=== PATIENT | male | born 1965 | race Caucasian/White ===

== ENCOUNTER 2023-06-01 10:46 | Emergency (ER) | payer OTHER, SELFPAY ==
[2023-06-01 11:01] VITALS: BP 146/94; PULSE 74; RESP 16; TEMP 36.6; O2SAT 99
--- NOTE | 2023-06-01 11:51 | ED.URI ---
HPI - URI/Sore Throat General Chief Complaint: Upper Respiratory Infection Stated Complaint: Sore Throat Time Seen by Provider: 06/01/23 11:48 Source: patient, RN notes reviewed and old records reviewed Mode of arrival: ambulatory Limitations: no limitations History of Present Illness HPI Narrative: 58 year old male who presents to [facility] care with complaints of sore throat and sinus drainage since .Patient reports that he did a home COVID which was negative.Patient reports that he has been taking Advil and cough drops. Patient reports fevers up to 100.8F and states painful swallowing. Patient states no known ill contacts. MD elicited complaint: cough and sore throat Pertinent past history: sinusitis and other (previous sinus surgery) Onset (ago): day(s) (3 days) Pain scale (0-10): 6 Able to tolerate fluids by mouth: Yes Treatments prior to arrival: ibuprofen and other (cough drops) Related Data Home Medications Medication Instructions Recorded Confirmed aspirin 81 mg tablet,delayed 81 mg PO DAILY 06/09/20 06/01/23 release (Adult Aspirin Regimen) cholecalciferol (vitamin D3) 10 10 mcg PO DAILY 06/09/20 06/01/23 mcg (400 unit) capsule multivitamin (Daily Multi-Vitamin 1 tablet PO DAILY 06/09/20 06/01/23 tablet) Allergies Allergy/AdvReac Type Severity Reaction Status Date / Time No Known Allergies Allergy Verified 06/01/23 11:00 Review of Systems Review of Systems: CONSTITUTIONAL: Denies malaise, chills, sweats, or fever. EYES: Denies visual changes, redness, or discharge. ENT: Reports rhinorrhea, congestion, sinus pain, no otalgia positive for sore throat. CARDIOVASCULAR: Denies chest pain, palpitations, or edema. RESPIRATORY: Reports cough.? Denies dyspnea. GASTROINTESTINAL: Denies abdominal pain, nausea, vomiting, diarrhea SKIN: Denies rash or itching. MUSCULOSKELETAL: Denies myalgia. NEUROLOGIC: Denies headache. All systems reviewed & are unremarkable except as noted in HPI and below PMFSH Past Medical History Medical History Madrigal's palsy History of malignant melanoma of skin KENDELL (obstructive sleep apnea) Overweight (BMI 25.0-29.9) Surgical History Surgical History H/O endoscopic sinus surgery History of Achilles tendon repair Social History Social History Smoking status: Never smoker Alcohol intake: current Comments At time of signature, agree with nursing past medical, surgical, social and family history. There is no relevant family history pertinent to the presenting complaint Exam Narrative: GENERAL: Well-appearing, well-nourished, and in no acute distress. HEAD: Normocephalic EYES: PERRLA, conjunctivae clear ENT: Nares clear, turbinates edematous and erythematous, clear discharge. Mucous membranes moist. TM pearly gordillo with dull light reflex bilaterally; no tragal tenderness. Oropharynx erythematous without lesions. Tonsils not enlarged and without exudate, no drooling, no hoarseness, no trismus, uvula midline.post nasal drainage. SAO2 99% on room air NECK: Supple. No lymphadenopathy CHEST: Clear to auscultation, breath sounds equal. No wheezing, rhonchi, rales, or stridor. No respiratory distress, speaks in full sentences. HEART: Regular rate and rhythm. No murmur heard. SKIN: Warm, dry, no rash. NEURO: Alert and oriented x3. PSYCH: Normal mood and affect Course Course Emergency Course: Patient is aware of diagnosis, understands and agrees to treatment plan.? Anticipatory guidance given.? Patient agrees to follow-up as directed and is aware of reasons to seek care at the emergency department. Portions of this record may have been created with voice recognition software Level of Care: Express Care Visit Vital Signs Vital signs: Vital Signs Temperature 36.6
== END 2023-06-01 12:08 | disposition home or self-care (01) ==
PROVIDERS: Emergency Provider Registered Nurse; PCP Family Medicine
DX: J32.9 Chronic sinusitis, unspecified (principal); J02.9 Acute pharyngitis, unspecified; Z85.820 Personal history of malignant melanoma of skin
CPT/HCPCS: 87081; 87880; 99213; G0463

== ENCOUNTER 2023-06-22 08:10 | Emergency (ER) | payer OTHER, SELFPAY ==
--- NOTE | 2023-06-22 08:16 | ED.FEMALEGU ---
HPI - Female Genitourinary General Chief complaint: Urogenital-Male Stated complaint: UTI Problems Time Seen by Provider: 06/22/23 08:35 Source: patient and RN notes reviewed Mode of arrival: ambulatory Limitations: no limitations History of Present Illness HPI Narrative: 58-year-old male presents with concern for difficulty urinating. He reports his last normal urination was likely yesterday morning. Reports since then he has been able to only dribble . He denies any pain. He reports he feels an uncomfortable pressure. He denies fever, aches, chills, sweats, abdominal pain, nausea, vomiting, back pain. He denies hematuria. He reports he has been having urine frequency the last several weeks that he has orders to get blood work from his primary doctor but he has not done that yet. MD elicited complaint: UTI Related Data Home Medications Medication Instructions Recorded Confirmed aspirin 81 mg tablet,delayed 81 mg PO DAILY 06/09/20 06/22/23 release (Adult Aspirin Regimen) cholecalciferol (vitamin D3) 10 10 mcg PO DAILY 06/09/20 06/22/23 mcg (400 unit) capsule multivitamin (Daily Multi-Vitamin 1 tablet PO DAILY 06/09/20 06/22/23 tablet) Allergies Allergy/AdvReac Type Severity Reaction Status Date / Time No Known Allergies Allergy Verified 06/22/23 08:25 Review of Systems Review of Systems: CONSTITUTIONAL: Denies malaise, chills, sweats, or fever. CARDIOVASCULAR: Denies chest pain, palpitations, or edema. RESPIRATORY: Denies cough or dyspnea. GASTROINTESTINAL: Denies abdominal pain, nausea, vomiting, diarrhea GENITOURINARY: denies dysuria, frequency, urgency, suprapubic pressure. Denies flank pain or hematuria. reports difficulty urinating SKIN: Denies rash or itching. MUSCULOSKELETAL: Denies back pain or myalgia. All systems reviewed & are unremarkable except as noted in HPI and below PMFSH Past Medical History Medical History Madrigal's palsy History of malignant melanoma of skin KENDELL (obstructive sleep apnea) Overweight (BMI 25.0-29.9) Surgical History Surgical History H/O endoscopic sinus surgery History of Achilles tendon repair Social History Social History Smoking status: Never smoker Alcohol intake: current Comments At time of signature, agree with nursing past medical, surgical, social and family history. There is no relevant family history pertinent to the presenting complaint Exam Narrative: GENERAL: Well-appearing, well-nourished, and in no acute distress. HEAD: Normocephalic. EYES: PERRLA, conjunctivae clear. NECK: Supple. No lymphadenopathy CHEST: Clear to auscultation. No respiratory distress. HEART: Regular rate and rhythm. ABDOMEN: Soft, nontender upon palpation, nondistended, normal active bowel sounds, no palpable or pulsatile masses, no guarding. No CVA tenderness SKIN: Warm, dry, no rash. NEURO: Alert and oriented x3. PSYCH: Normal mood and affect Course Course Emergency Course: I advised patient that I am unable to catheterize him here in this clinic, offered transfer to the emergency department, patient would rather not go to the emergency department. I advised him I can treat for presumptive prostate itis with Flomax antibiotic and if he has not urinated by this evening he go to the emergency room. He prefers that plan of care. Patient is aware of, understands and agrees to treatment plan. Anticipatory guidance given. Patient agrees to follow-up as directed and is aware of reasons to seek care at the emergency department. Portions of this record may have been created with voice recognition software Level of Care: Express Care Visit Vital Signs Vital signs: Reviewed. MDM - Female Genitourinary MDM Narrative Medical decision making narrative: Exam findings and UA sh
[2023-06-22 08:19] VITALS: BP 176/115; PULSE 84; RESP 16; TEMP 36.8; O2SAT 99
== END 2023-06-22 08:49 | disposition home or self-care (01) ==
PROVIDERS: Emergency Provider Nurse Practitioner; PCP Family Medicine
DX: R39.11 Hesitancy of micturition (principal); Z79.82 Long term (current) use of aspirin
CPT/HCPCS: 81003; 99213; G0463

== ENCOUNTER 2023-08-22 02:00 | Day surgery (SDC) | payer OTHER, SELFPAY ==
[2023-08-07 10:03] VITALS: BMI 29.3
--- NOTE | 2023-08-20 08:56 | SUR.PREOP ---
Patient called regarding upcoming procedure. Reviewed preop instructions, appointment times, and procedure prep.
--- NOTE | 2023-08-21 09:46 | P.PNAN_ITS ---
Anes - Initial Pre Proc Eval Procedure: Operation Date: 08/22/23 07:30 Proposed Procedures p Screening Colonoscopy - Alonzo Scott MD Date/Time: 08/21/23 09:46 Surgeon: Alonzo Scott MD Pre Op Diagnosis: neoplasm screening Patient Data Age: 58 Gender: M Height: 1.78 m Weight: 92.7 kg Allergies Allergy/AdvReac Type Severity Reaction Status Date / Time No Known Allergies Allergy Verified 08/22/23 06:19 Home Medications Medication Instructions Recorded Confirmed Type aspirin 81 mg tablet,delayed 81 mg PO DAILY 06/09/20 08/22/23 History release (Adult Aspirin Regimen) cholecalciferol (vitamin D3) 10 10 mcg PO DAILY 06/09/20 08/22/23 History mcg (400 unit) capsule multivitamin (Daily Multi-Vitamin 1 tablet PO DAILY 06/09/20 08/22/23 History tablet) tamsulosin 0.4 mg capsule (Flomax) 0.4 mg PO DAILY #5 caps 06/22/23 08/22/23 Rx finasteride 5 mg tablet 5 mg PO DAILY #90 tabs 06/26/23 08/22/23 Rx tamsulosin 0.4 mg capsule (Flomax) 0.4 mg PO DAILY #90 caps 06/26/23 08/22/23 Rx fluticasone furoate 100 1 inh inhalation DAILY #60 ea 07/10/23 08/22/23 Rx mcg-vilanterol 25 mcg/dose inhalation powder (Breo Ellipta) bisoprolol fumarate 5 mg tablet See Rx Instructions .Route 08/05/23 08/22/23 Rx .COMPLEX #90 tabs Patient hx anesthesia problems: none Family hx anesthesia problems: none Results Review: All pre-operative results and documents have been reviewed as part of the pre- operative evaluation. [facility] Past Medical History Medical History (Updated 08/21/23 @ 09:46 by Carlos Benavidez DO) Madrigal's palsy Essential (primary) hypertension History of malignant melanoma of skin Mixed hyperlipidemia KENDELL (obstructive sleep apnea) Overweight (BMI 25.0-29.9) Surgical History Surgical History H/O endoscopic sinus surgery History of Achilles tendon repair Social History Social History (Updated 06/26/23 @ 15:08 by Shannan Laboy MA) Smoking status: Never smoker Alcohol intake: current Drinks per week: 2 Substance use type: does not use Lack of Transportation: No Lack of Food: Never True Current Housing: I Have Housing Concerned About Future Housing: No Difficulty Paying Gas/Electric Bills: No Difficulty Paying for Meds: No Currently Unemployed: No Education: Associate Degree Difficulty w/ Childcare or Family Care: No Living arrangements: with family Spiritual care concerns: No Anes - Eval Final PreProcedure Day of Procedure 08/21/23 09:46 Patient weight: overweight Heart: regular rate and rhythm Lungs: clear to auscultation Airway: Mallampati scale class II Neurological: alert and oriented Last oral intake: >/= 8 hours ASA classification: III Emergent: no Anesthetic plan: proceed Anesthesia type and monitoring: general GIVS and standard monitoring Results Review: All pre-operative results and documents have been reviewed as part of the pre- operative evaluation. Informed Consent: The patient's anesthetic plan and its attendant risks and benefits were discussed with the patient/family/POA. Questions were solicited and answers provided to the satisfaction of the patient/family/POA.
[2023-08-22 06:23] VITALS: BP 137/105; PULSE 68; RESP 18; TEMP 36.2; O2SAT 100; BMI 29.0
[2023-08-22] MEDS: LACTATED RINGERS 1,000 ML 150 ML IV CONT (06:25)
--- NOTE | 2023-08-22 07:18 | PM.HPGS ---
History of Present Illness History of Present Illness Consent: Risks, benefits, and alternatives have been discussed and questions answered. Patient agrees to proceed with procedure. Chief complaint: neoplasm screening Narrative: Compa Lester is a 58 year old male here for screening colonoscopy, last one 10 years ago Review of Systems Constitutional: Constitutional: Denies headache(s) and Denies weakness Eyes: Eyes: Denies blurry vision ENT: Reports Normal hearing present, Denies headache(s) and Denies neck pain Cardiovascular: Cardiovascular: Denies chest pain and Denies dyspnea Respiratory: Respiratory: Denies dyspnea Gastrointestinal: Gastrointestinal: Reports no additional gastrointestinal complaints Genitourinary: Genitourinary: Denies dysuria Musculoskeletal: Musculoskeletal: Denies neck pain Integumentary/Breasts: Skin/Breast: Denies dry skin Neurologic: Reports Normal hearing present, Denies headache(s) and Denies weakness Psychiatric: Psychiatric: Denies anxiety Endocrine: Endocrine: Denies change in body appearance Hematologic/Lymphatic: Hematologic/Lymphatic: Denies easy bleeding Allergic/Immunologic: Allergic/Immunologic: Denies urticaria PMFSH Past Medical History Medical History (Updated 08/21/23 @ 09:46 by Carlos Benavidez DO) Madrigal's palsy Essential (primary) hypertension History of malignant melanoma of skin Mixed hyperlipidemia KENDELL (obstructive sleep apnea) Overweight (BMI 25.0-29.9) Surgical History Surgical History H/O endoscopic sinus surgery History of Achilles tendon repair Social History Social History (Updated 06/26/23 @ 15:08 by Shannan Laboy MA) Smoking status: Never smoker Alcohol intake: current Drinks per week: 2 Substance use type: does not use Lack of Transportation: No Lack of Food: Never True Current Housing: I Have Housing Concerned About Future Housing: No Difficulty Paying Gas/Electric Bills: No Difficulty Paying for Meds: No Currently Unemployed: No Education: Associate Degree Difficulty w/ Childcare or Family Care: No Living arrangements: with family Spiritual care concerns: No Meds Home Medications and Allergies Home Medications Medication Instructions Recorded Confirmed Type aspirin 81 mg tablet,delayed 81 mg PO DAILY 06/09/20 08/22/23 History release (Adult Aspirin Regimen) cholecalciferol (vitamin D3) 10 10 mcg PO DAILY 06/09/20 08/22/23 History mcg (400 unit) capsule multivitamin (Daily Multi-Vitamin 1 tablet PO DAILY 06/09/20 08/22/23 History tablet) tamsulosin 0.4 mg capsule (Flomax) 0.4 mg PO DAILY #5 caps 06/22/23 08/22/23 Rx finasteride 5 mg tablet 5 mg PO DAILY #90 tabs 06/26/23 08/22/23 Rx tamsulosin 0.4 mg capsule (Flomax) 0.4 mg PO DAILY #90 caps 06/26/23 08/22/23 Rx fluticasone furoate 100 1 inh inhalation DAILY #60 ea 07/10/23 08/22/23 Rx mcg-vilanterol 25 mcg/dose inhalation powder (Breo Ellipta) bisoprolol fumarate 5 mg tablet See Rx Instructions .Route 08/05/23 08/22/23 Rx .COMPLEX #90 tabs Allergies Allergy/AdvReac Type Severity Reaction Status Date / Time No Known Allergies Allergy Verified 08/22/23 06:19 Vital Signs Vital Signs - 24 hr 08/22/23 06:23 Temperature 97.2 F L Pulse Rate 68 Respiratory Rate 18 Blood Pressure 137/105 H Pulse Oximetry 100 Oxygen Delivery Room Air Exam Const: General: comfortable and no acute distress HENMT: Face/Nose/Sinus: Normal nares present Eyes: General: appearance normal, both eyes and all related structures Neck: Neck: no JVD Resp: Auscultation: clear to auscultation bilaterally Cardio: Rate: regular rate Rhythm: regular rhythm GI: Inspection: non-distended GI Palp: Yes Soft to palpation Skin: General skin exam: normal color Neuro: General: gait normal Speech: normal speech Extrem: General: normal to inspection Psych:
[2023-08-22 07:32] VITALS: BP 116/69; PULSE 72; RESP 14; O2SAT 97
[2023-08-22 07:42] VITALS: BP 101/62; PULSE 62; RESP 14; O2SAT 98
[2023-08-22 07:52] VITALS: BP 110/66; PULSE 60; RESP 18; O2SAT 98
== END 2023-08-22 08:00 | disposition home or self-care (01) ==
PROVIDERS: PCP Family Medicine; Visit Provider Internal Medicine Gastroenterology
PROC: 0DJD8ZZ Inspection of Lower Intestinal Tract, Via Natural or Artificial Opening Endoscopic (ICD-10-PCS; CPT 45378; principal; 2023-08-22 07:30)
DX: Z12.11 Encounter for screening for malignant neoplasm of colon (principal); K57.30 Diverticulosis of large intestine without perforation or abscess without bleeding; K64.8 Other hemorrhoids; I10 Essential (primary) hypertension; E78.2 Mixed hyperlipidemia; G47.33 Obstructive sleep apnea (adult) (pediatric); Z79.82 Long term (current) use of aspirin; Z79.51 Long term (current) use of inhaled steroids
CPT/HCPCS: 45378; J2704; J7120

== ENCOUNTER 2025-05-28 17:00 | Emergency (ER) | payer OTHER, SELFPAY ==
--- NOTE | ~2025-05-28 | CT_ITS ---
EXAMINATION: CT chest abdomen pelvis w vicki, 05/28/2025 17:55 CDT HISTORY: fall from 8 ft onto counter-rt posterior rib pain COMPARISON: No comparisons available. TECHNIQUE: CT scan of the chest, abdomen and pelvis was performed with contrast Isovue 300, 92cc injected IV. One or more of the following dose reduction techniques were used: automated exposure control, adjustment of the mA and/or kV according to patient size, use of iterative reconstruction technique. Unless otherwise stated, incidental findings do not require dedicated follow up imaging FINDINGS: CT chest: No significant coronary calcification is present ([id number]) LUNGS: No tracheomalacia bronchiectasis. No pneumothorax. Minimal right lower lobe posteriorly contusion. Minimal emphysematous changes. Mild pulmonary fibrotic changes. HEART AND PERICARDIUM: Within normal limits. AORTA: Normal caliber aorta. MEDIASTINUM: Unremarkable. THYROID: The thyroid is unremarkable. CT abdomen: LIVER: Mild hepatic steatosis. Portal vein patent. SPLEEN: Unremarkable, no splenomegaly. KIDNEYS: Right Kidney: Unremarkable. No calculi. No hydronephrosis. Left Kidney: Unremarkable. No calculi. No hydronephrosis ADRENAL GLANDS: Unremarkable. PANCREAS: GALLBLADDER/BILIARY: Unremarkable. No biliary dilatation. STOMACH AND ESOPHAGUS: Visualized stomach and esophagus within normal limits. BOWEL/MESENTERY: Moderate diverticulosis. No colitis or diverticulitis. Appendix normal. Mesentery normal. No thickened or dilated loops of small bowel. RETROPERITONEUM: Unremarkable AORTA/VASCULATURE: Normal caliber aorta. FREE FLUID OR FREE AIR: No free fluid.. CT pelvis: SOLID ORGANS/REPRODUCTIVE: The prostate is enlarged with a heterogeneous appearance, correlate with PSA. BLADDER: Within normal limits. LYMPHADENOPATHY: No lymphadenopathy. OSSEOUS STRUCTURES: No sclerotic or lytic lesions. No fractures identified within the pelvis. There are nondisplaced fractures of the posterior right sixth and seventh ribs.The right clavicle head appears dislocated posteriorly, correlate clinically. OVERLYING SOFT TISSUES: [id number] bilateral fat-containing inguinal hernia. IMPRESSION: 1. Right-sided rib fractures detailed above with minimal contusion in the right lung. The right clavicle head appears dislocated, correlate clinically. 2. No acute intra-abdominal process. 3. Incidental findings above Reviewed, dictated and finalized at location P.
--- NOTE | ~2025-05-28 | XR_ITS ---
EXAMINATION: XR chest 2V, 05/28/2025 18:22 CDT HISTORY: right rib pain, fall COMPARISON: No comparisons available. Technique: 2 views obtained. Findings: The lungs are clear, no effusion. No pneumothorax. Heart is normal size. Mediastinal and hilar contours are within normal limits. Bony thorax no acute abnormality. Impression: No acute cardiopulmonary abnormality. Reviewed, dictated and finalized at location P. Impression: No acute cardiopulmonary abnormality.
[2025-05-28 17:00] VITALS: BP 174/100; PULSE 65; RESP 18; TEMP 37.1; O2SAT 98
--- OUTSIDE RECORDS SUMMARY | 2025-05-28 17:02 | XMS_ITS | Encounter Summary ---
Author Organization [facility] Address [address] [place] [address] Phone Care Team Providers Care Song Lyricist Name Role Phone Ryan Francois MD Primary Care Provider [phone] Ryan Francois MD Primary Care Provider [phone] Encounter Details Date Type Department Care Team (Latest Contact Info) Description 03/24/2017 Orders Only [facility] CONVERSION Scanning, Provider Social History Tobacco Use Types Packs/Day Years Used Date Smoking Tobacco: Never Assessed Sex and Gender Information Value Date Recorded Sex Assigned at Not on file Legal 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 Gender Identity Not on file Sexual Orientation Not on file documented as of this encounter Plan of Treatment Not on file documented as of this encounter Procedures Procedure Name Priority Date/Time Associated Diagnosis Comments VASCULAR LABORATORY REPORT 03/24/2017 6:35 PM CDT VASCULAR LABORATORY REPORT 03/24/2017 6:35 PM CDT VASCULAR LABORATORY REPORT 03/24/2017 6:35 PM CDT documented in this encounter Results * VASCULAR LABORATORY REPORT (03/24/2017 6:35 PM CDT) Anatomical Region Laterality Modality Ultrasound us Provider Scanning CV VASCULAR PROCEDURES Final R esult * VASCULAR LABORATORY REPORT (03/24/2017 6:35 PM CDT) Anatomical Region Laterality Modality Ultrasound us Provider Scanning CV VASCULAR PROCEDURES Final R esult * VASCULAR LABORATORY REPORT (03/24/2017 6:35 PM CDT) Anatomical Region Laterality Modality Ultrasound us Provider Scanning CV VASCULAR PROCEDURES Final R esult documented in this encounter Visit Diagnoses Not on filedocumented in this encounter Care Teams Song Lyricist Relationship Specialty Start Date End Date Ryan Francois MD PCP - General 03/10/17 05/14/17 Ryan Francois MD PCP - General 05/15/17 documented as of this encounter
--- OUTSIDE RECORDS SUMMARY | 2025-05-28 17:02 | XMS_ITS | Clinical Summary ---
Author Organization [facility] Address [address] [place] [address] Care Team Providers Care Astronomy Professor Name Role Phone Ryan Francois MD Primary Care Provider [phone] Allergies No known active allergies Medications cholecalciferol, vitamin D3, (VITAMIN D3 ORAL) Take 1 capsule by mouth nightly. Active MULTIVITAMIN ORAL Take 1 tablet by mouth nightly. Active betamethasone dipropionate (DIPROLENE) 0.05 % lotion 0 Active mupirocin (BACTROBAN) 2 % ointment Apply topically 3 (three) times a day 1 Active bisoprolol (ZEBETA) 5 mg tablet 2 Active triamcinolone (KENALOG) 0.1 % cream Apply topically 2 (two) times a day APPLY TO AFFECTED AREA 1 Active aspirin 81 mg enteric coated tablet Take 81 mg by mouth daily Active Active Problems Problem Noted Date Diagnosed Date KENDELL (obstructive sleep apnea) 03/30/2020 Prepatellar bursitis of left knee 02/07/2020 Acute rhinitis 07/21/2019 Overview (07/21/2019): Added automatically from request for surgery [id number] Chronic rhinitis 07/21/2019 Overview (07/21/2019): Added automatically from request for surgery [id number] 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 Right PERONEAL NERVE DECOMPRESSION 09/01/2017 - 08/31/2018 NOSE SURGERY 09/01/2018 - 08/31/2019 KNEE SURGERY fluid drained Medical History Medical History Date Comments Sleep apnea HTN (hypertension) Compression of common peroneal nerve Hx of transfusion Melanoma (HCC) Family History Medical History Relation Name Comments Arrhythmia Father Stroke Paternal Grandmother Marion Lester Anesthesia problems Neg Hx Heart disease Neg Hx Malig Hypertension Neg Hx Malig Hyperthermia Neg Hx Pseudochol deficiency Neg Hx Relation Name Status Comments Father Paternal Grandmother Marion Lester Social History Tobacco Use Types Packs/Day Years Used Date Smoking Tobacco: Never Smokeless Tobacco: Never Alcohol Use Standard Drinks/Week Comments Yes 3 (1 standard drink = 0.6 oz pur e alcohol) Sex and Gender Information Value Date Recorded Sex Assigned at Not on file Legal 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 Gender Identity Not on file Sexual Orientation Not on file Obstetrics History Last Filed Vital Signs Vital Sign Reading Time Taken Comments Blood Pressure 144/89 01/31/2020 8:17 AM CDT Pulse 54 01/31/2020 8:17 AM CDT Temperature 36.6 C (97.8 F) 01/31/2020 8:17 AM CDT Respiratory Rate 11 08/11/2019 12:30 PM TUB MENDER Oxygen Saturation 98% 01/31/2020 8:17 AM CDT Inhaled Oxygen Concentration - - Weight 91.6 kg (202 lb) 12/17/2021 4:08 PM CDT Height 180.3 cm (5' 11) 12/17/2021 4:08 PM CDT Body Mass Index 28.17 12/17/2021 4:08 PM CDT Plan of Treatment Not on file Medical Devices Implanted Type Area Knee Bolter Device Identifier Shelf Expiration Date Model / Serial / Lot Niesha Craniomaxillofacia l [id number] Duramatrix-Onlay 2x2in Conformable Resorbable Cranium Patch Dural - Sna - [id number] Implanted:Qty: 1 on 08/11/2019 by Rachel Husain MD at [facility] Collagen N/A: Nose Niesha Craniomaxillofacial [id number] 01/29/2021 [facility]22 / NA / [id number] Description:DuraMatrix-OnLay Collagen Matrix Insurance [facility] [employer]/PPO Address: [place] [address] [facility] [employer] Address: [id number] [place] [address] [id number] Care Teams Astronomy Professor Relationship Specialty Start Date End Date Ryan Francois MD PCP - General 05/15/17
--- OUTSIDE RECORDS SUMMARY | 2025-05-28 17:02 | XMS_ITS | Clinical Summary ---
Author Organization [facility] Address [address] [place] [address] Care Team Providers Care Cushion Maker Hand Name Role Phone Unavailable Primary Care Provider Unavailabl e Source Comments [facility],non-owned Affiliates and Associated Physician Practices is amultiple site organization consisting of ambulatory clinics and hospital sitesin [place], [place], [place] and [place]. This disclosure is being madepursuant to the Care Everywhere program and may not contain all information available regarding this patient. Last updated 18.[facility] [employer] Social History Tobacco Use Types Packs/Day Years Used Date Smoking Tobacco: Never Assessed Sex and Gender Information Value Date Recorded Sex Assigned at Not on file Legal Sex Male 3:15 PM WARP PICKER Gender Identity Not on file Sexual Orientation Not on file Plan of Treatment Health Maintenance Due Date Last Done Comments COLOGUARD (AGES 45-75) - COL ON CA SCREENING 1963 COLON MONITORING 1963 COLONOSCOPY - COLON CA SCREENING 1963 CT COLONOGRAPHY - COLON CA SCREENING 1963 Colorectal Cancer Screening 1963 FIT - COLON CA SCREENING 1963 FLEX SIG - COLON CA SCREENING 1963 LIPID TESTING 1963 HIV SCREENING 1978 HEPATITIS C SCREENING 02/24/1981 DTAP/TDAP/TD VACCINES (1 - Tdap) 1982 PNEUMOCOCCAL VACCINE 50+ (1 of 1 - PCV) 2013 ZOSTER VACCINE (1 of 2) 2013 DEPRESSION SCREENING 09/01/2024 COVID-19 VACCINE (1 - 2023-2 5 season) 2025 INFLUENZA VACCINE (#1) 2025 Respiratory Syncytial Virus (RSV) Vaccine Pt: or over 60 yrs (1 - 1-dose 75+ series) 2038 HEPATITIS B VACCINE Aged Out No longe r eligible based on patient's age to complete this topic HIB VACCINE Aged Out No longer eligi ble based on patient's age to complete this topic HPV VACCINE Aged Out No longer eligi ble based on patient's age to complete this topic MENINGOCOCCAL (Group B) VACC INE SHARED DECISION-MAKING Aged Out No longer eligibl e based on patient's age to complete this topic MENINGOCOCCAL GROUPS A/C/Y/W VACCINE Aged Out No longer eligible b ased on patient's age to complete this topic Insurance
--- OUTSIDE RECORDS SUMMARY | 2025-05-28 17:02 | XMS_ITS | Encounter Summary ---
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 Gender Identity Not on file Sexual Orientation Not on file documented as of this encounter Plan of Treatment Not on file documented as of this encounter Procedures Procedure Name Priority Date/Time Associated Diagnosis Comments VASCULAR LABORATORY REPORT 12/09/2017 10:40 AM CDT documented in this encounter Results * VASCULAR LABORATORY REPORT (12/09/2017 10:40 AM CDT) Anatomical Region Laterality Modality Ultrasound us Provider Scanning CV VASCULAR PROCEDURES Final R esult documented in this encounter Visit Diagnoses Not on filedocumented in this encounter Care Teams Welt Butter Hand Relationship Specialty Start Date End Date Ryan Francois MD PCP - General 05/15/17 documented as of this encounter
--- NOTE | 2025-05-28 17:34 | ED.FALL ---
HPI - Fall General Chief Complaint: Fall Stated Complaint: right rib pain Time Seen by Provider: 05/28/25 17:11 Source: patient and RN notes reviewed Mode of arrival: ambulatory Limitations: no limitations History of Present Illness HPI Narrative: This is a 60 year old male with history of hypertension who presents for evaluation of right flank pain s/p fall. He states that he was on a ladder when he lost his balance and this caused him to fall 6-8 ft onto a counter top. He reports pain to right flank . This event occurred 3 hours ago. He reports severe tenderness to right lower rib . He denies shortness of breath. HE denies hitting his head or LOC. He reports pain is 10/10. He denies neck pain. MD complaint: fall Onset (ago): hour(s) (4) Related Data Home Medications ?Medication ?Instructions ?Recorded ?Confirmed ?Last Taken ?Type aspirin 81 mg tablet,delayed 81 mg PO DAILY 06/09/20 04/18/25 08/21/23 History release (Adult Aspirin Regimen) cholecalciferol (vitamin D3) 10 10 mcg PO DAILY 06/09/20 04/18/25 08/21/23 History mcg (400 unit) capsule multivitamin (Daily Multi-Vitamin 1 tablet PO DAILY 06/09/20 04/18/25 08/21/23 History tablet) betamethasone dipropionate 0.05 % topical 03/25/24 04/18/25 Unknown History lotion triamcinolone acetonide 0.1 % applic topical 09/30/24 04/18/25 Unknown History topical cream Allergies Allergy/AdvReac Type Severity Reaction Status Date / Time No Known Allergies Allergy Verified 04/18/25 15:10 [facility] Past Medical History Medical History History of malignant melanoma of skin Overweight (BMI 25.0-29.9) KENDELL (obstructive sleep apnea) Mixed hyperlipidemia Madrigal's palsy Essential (primary) hypertension Surgical History Surgical History H/O endoscopic sinus surgery History of Achilles tendon repair Family History Family History (Updated 04/18/25 @ 15:19 by Lanny Nielsen MA) Sibling Walker syndrome Robert cell carcinoma Social History Social History Smoking status: Never smoker Alcohol intake: current Drinks per week: 2 Substance use type: does not use Lack of Transportation: No Lack of Food: Never True Current Housing: I Have Housing Concerned About Future Housing: No Difficulty Paying Gas/Electric Bills: No Difficulty Paying for Meds: No Currently Unemployed: No Education: Associate Degree Difficulty w/ Childcare or Family Care: No Living arrangements: with family Spiritual care concerns: No Exam Const: General: alert; No diaphoretic Nutritional Appearance: well nourished Orientation/consciousness: patient oriented x3 Other: He is in severe pain HENMT: Head: normal to inspection Eyes: EOM: EOMs intact bilaterally Neck: Neck: normal visual inspection, no lymphadenopathy and no meningeal signs Chest: Chest palpation & inspection: tenderness rib (right lower lateral ribs) Resp: Effort & Inspection: normal respiratory effort Auscultation: clear to auscultation bilaterally Cardio: Rate: regular rate Rhythm: regular rhythm Heart sounds: no murmurs GI: GI Palp: Yes Soft to palpation and Yes Tenderness to palpation present (GI) Auscultation: normal bowel sounds Back/Spine/Pelvis: Back: CVA tenderness Skin: Other: abrasion to right flank Neuro: General: patient oriented x3, moves all extremities and CN's II-XI intact bilaterally Extrem: General: normal to inspection Psych: Mental Status: mental status grossly normal Affect: normal affect Attitude: cooperative Course Reevaluation(s) Reevaluation #1: I Discussed with patient CT shows 6th and 7th rib. He reports clavicle dislocation is old injury. I Discussed using incentive spirometer and pain control. He understands plan to discharge. Date: 05/28/25 Time: 19:14 Vital Signs Vital signs: Vital Signs Temperature 98.8 F 05/28/25 17:00 Pulse Rate 65 05/28/25 17:00 Respiratory Rate 18 05/28/25 17:00 Blood Pressure 174/100 H 05/28/25 17:00 Pulse Oximetry 98 05/28/25 17:00 Temperature 98.8 F 05/28/25 17:00 Pulse Rate 68 05/28/25 18:51 Respiratory Rate 20 05/28/25 18:51 Blood Pressure 179/112 H 05/28/25 18:51 Pulse Oximetry 97 05/28/25 18:51 MDM - Fall Differential Diagnosis Differential diagnosis: Likely other (rib fracture, liver laceration, abdominal contusion, pulmonary contusion) Lab Data Attestation: I reviewed the patient's lab results. 05/28/25 17:33 05/28/25 17:33 Labs: Lab Results 05/28/25 Range/Units 17:33 WBC 8.5 (4.5-10.0) K/mm3 RBC 4.94 (4.6-6.20) M/mm3 Hgb 14.3 (14.0-18.0) g/dL Hct 42.6 (42.0-52.0) % MCV 86.2 (80-100) fl MCH 28.9 (26-34) pg MCHC 33.6 (32-36) g/dl RDW 14.3 (11.5-14.5) % Plt Count 176 (150-375) k/mm3 MPV 11.0 H (7.4-10.4) fl Immature Gran % (Auto) 0.4 (0-0.5) % Neut % (Auto) 82.4 H (45.5-73.1) % Lymph % (Auto) 10.9 L (18.3-44.2) % [place] % (Auto) 5.9 (2.6-8.5) % Eos % (Auto) 0.0 (0-4.4) % Baso % (Auto) 0.4 (0.2-1.2) % Lymph # (Auto) 0.93 (0.9-3.2) K/mm3 [place] # (Auto) 0.5 (0.1-0.6) K/mm3 Eos # (Auto) 0.0 (0-0.3) K/mm3 Baso # (Auto) 0.0 (0.0-0.1) K/mm3 Abs Immat Gran (auto) 0.03 (0.00-0.031) K/mm3 Absolute Neuts (auto) 7.0 H (1.3-6.7) K/mm3 Absolute Nucleated RBC 0.000 (0.0-0.012) K/mm3 Nucleated RBC % 0.0 (0.0-0.2) % PT 13.1 (11.1-14.7) Seconds INR 1.0 APTT 27.8 (22.3-36.8) Seconds Sodium 141 (137-145) mmol/L Potassium 4.2 (3.4-5.0) mmol/L Chloride 108 H (98-107) mmol/L Carbon Dioxide 26 (22-30) mmol/L Anion Gap 7 (4-12) mmol/L BUN 21 H (9-20) mg/dL Creatinine 0.97 (0.7-1.3) mg/dL Estim Creat Clear Calc 74 ml/min Estimated GFR > 60 (59 - ) Glucose 107 (65-110) mg/dL Calcium 9.2 (8.4-10.2) mg/dL Total Bilirubin 0.5 (0.2-1.3) mg/dL AST 41 (17-59) U/L ALT 36 (6-50) U/L Alkaline Phosphatase 64 (38-126) U/L Total Protein 7.8 (6.3-8.2) g/dL Albumin 4.4 (3.5-5.1) g/dL Imaging Data Radiologist's impression: ITS Impressions Chest X-Ray 05/28/25 18:44 Impression: No acute cardiopulmonary abnormality. Chest/Abdomen/Pelvis CT 05/28/25 18:47 IMPRESSION: 1. Right-sided rib fractures detailed above with minimal contusion in the right lung. The right clavicle head appears dislocated, correlate clinically. 2. No acute intra-abdominal process. 3. Incidental findings above Discharge Plan Discharge Clinical Impression: Right rib fracture Qualifiers: Encounter type: initial encounter Rib fracture type: multiple ribs Fracture type: closed Qualified Code(s): S22.41XA - Multiple fractures of ribs, right side, initial encounter for closed fracture Patient Disposition: Home Condition: Stable Instructions: Antibiotic Form, Rib Fracture (ED) Additional Instructions: Please use incentive spirometer every 4 hours . Take pain medication as needed. Follow up with your primary care provider if needed. Patient Language: Polish Prescriptions: New hydrocodone-acetaminophen 5-325 mg tablet 1 tablet PO Q6H PRN (Reason: pain) Qty: 10 0RF No Action aspirin [Adult Aspirin Regimen] 81 mg tablet,delayed release (DR/EC) 81 mg PO DAILY cholecalciferol (vitamin D3) 10 mcg (400 unit) capsule 10 mcg PO DAILY multivitamin [Daily Multi-Vitamin] Tablet 1 tablet PO DAILY betamethasone dipropionate 0.05 % lotion topical triamcinolone acetonide 0.1 % cream topical mupirocin [Centany] 2 % ointment 1 applic topical BID Qty: 22 1RF lisinopril 10 mg tablet 10 mg PO DAILY Qty: 90 3RF fluticasone propionate [Children's Flonase Allergy Rlf] 50 mcg/actuation spray,suspension 2 spray intranasal DAILY Qty: 16 5RF Rx Instructions: administer into each nostril tamsulosin [Flomax] 0.4 mg capsule 0.4 mg PO DAILY Qty: 90 3RF bisoprolol fumarate 5 mg tablet See Rx Instructions .ROUTE .COMPLEX Qty: 90 1RF Dose Instruction: TAKE 1 TABLET BY MOUTH DAILY Rx Instructions: TAKE 1 TABLET BY MOUTH DAILY Follow-up/Referrals: Ryan Francois MD [Primary Care Provider, Family Practice]
--- OUTSIDE RECORDS SUMMARY | 2025-05-28 17:39 | XMS_ITS | Clinical Summary ---
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 06/05/2018 Overview (06/05/2018): Added automatically from request for surgery [id number] Lumbar radiculopathy 05/09/2017 Immunizations Immunization Administration Dates [...] on file Legal 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 Gender Identity Not on file Sexual Orientation Not on file Obstetrics History Last Filed Vital Signs Vital Sign Reading Time Taken Comments Blood Pressure 144/89 01/31/2020 8:17 AM CDT Pulse 54 01/31/2020 8:17 AM CDT Temperature 36.6 C (97.8 F) 01/31/2020 8:17 AM CDT Respiratory Rate 11 08/11/2019 12:30 PM RN HEART Oxygen Saturation 98% 01/31/2020 8:17 AM CDT Inhaled Oxygen Concentration - - Weight 91.6 kg (202 lb) 12/17/2021 4:08 PM CDT Height 180.3 cm (5' 11) 12/17/2021 4:08 PM CDT Body Mass Index 28.17 12/17/2021 4:08 PM CDT Plan of Treatment Not on file Medical Devices Implanted Type Area Power Transformer Repair Supervisor Device Identifier Shelf Expiration Date Model / Serial / Lot Niesha Craniomaxillofacia l [id number] Duramatrix-Onlay 2x2in Conformable Resorbable Cranium Patch Dural - Sna - [id number] Implanted:Qty: 1 on 08/11/2019 by Rachel Husain MD at [facility] Collagen N/A: Nose Niesha Craniomaxillofacial [id number] 01/29/2021 [id number] / NA / [id number] Description:DuraMatrix-OnLay Collagen Matrix Insurance [id number] Care Teams Belt Cleaner Relationship Specialty Start Date End Date Ryan Francois MD PCP - General 05/15/17
--- OUTSIDE RECORDS SUMMARY | 2025-05-28 17:39 | XMS_ITS | Encounter Summary ---
Author Organization [facility] Address [address] [place] [address] Phone Care Team Providers Care Product Support Specialist Name Role Phone Ryan Francois MD Primary Care Provider [phone] Ryan Francois MD Primary Care Provider [phone] Encounter Details Date Type Department Care Team (Latest Contact Info) Description 03/24/2017 Orders Only [facility] CONVERSION Scanning, Provider Social History Tobacco Use Types Packs/Day Years Used Date Smoking Tobacco: Never Assessed Sex and Gender Information Value Date Recorded Sex Assigned at Not on file 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
--- OUTSIDE RECORDS SUMMARY | 2025-05-28 17:39 | XMS_ITS | Clinical Summary ---
Author Organization [facility] Address [address] [place] [address] Care Team Providers Care Hand I Cutter Name Role Phone Unavailable Primary Care Provider Unavailabl e Source Comments [facility],non-owned Affiliates and Associated Physician Practices is amultiple site organization consisting of ambulatory clinics and hospital sitesin [place], [place], [place] and [place]. This disclosure is being madepursuant to the Care Everywhere program and may not contain all information available regarding this patient. Last updated 18.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
--- OUTSIDE RECORDS SUMMARY | 2025-05-28 17:39 | XMS_ITS | Encounter Summary ---
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
[2025-05-28 17:40] LABS: Hematocrit 42.6 % (42.0-52.0); Hemoglobin 14.3 g/dL (14.0-18.0); Immature Granulocyte Percent A 0.4 % (0-0.5); Lymphocytes Absolute Auto 0.93 K/mm3 (0.9-3.2); Mean Corpuscular HGB Conc 33.6 g/dl (32-36); Mean Corpuscular Hemoglobin 28.9 pg (26-34); Mean Corpuscular Volume 86.2 fl (80-100); Nucleated Red Blood Cells Absolute Auto 0.000 K/mm3 (0.0-0.012); Nucleated Red Blood Cells Perc 0.0 % (0.0-0.2); Platelet Count Result 176 k/mm3 (150-375); Red Blood Count 4.94 M/mm3 (4.6-6.20); White Blood Count 8.5 K/mm3 (4.5-10.0)
[2025-05-28] MEDS: ONDANSETRON INJ 4 MG/2 ML VIAL IV PUSH (17:49)
[2025-05-28] MEDS: HYDROmorphone HCL INJ (*CRX) 1 MG/ML SYR 0.5 MG IV PUSH (17:50)
[2025-05-28 17:51] LABS: INR 1.0; Prothrombin Time 13.1 Seconds (11.1-14.7)
[2025-05-28 17:52] LABS: Partial Thromboplastin Time 27.8 Seconds (22.3-36.8)
[2025-05-28 17:53] LABS: Alanine Aminotransferase 36 U/L (6-50); Albumin Level 4.4 g/dL (3.5-5.1); Alkaline Phosphatase 64 U/L (38-126); Anion Gap 7 mmol/L (4-12); Aspartate Amino Transferase 41 U/L (17-59); Bilirubin,Total 0.5 mg/dL (0.2-1.3); Blood Urea Nitrogen 21 mg/dL (9-20); Calcium 9.2 mg/dL (8.4-10.2); Carbon Dioxide 26 mmol/L (22-30); Chloride 108 mmol/L (98-107); Estimated CRCL calculation 74 ml/min; Estimated Glomerular Filt Rate > 60; Glucose 107 mg/dL (65-110); Potassium 4.2 mmol/L (3.4-5.0); Sodium 141 mmol/L (137-145); Total Protein 7.8 g/dL (6.3-8.2)
[2025-05-28 18:51] VITALS: BP 179/112; PULSE 68; RESP 20; O2SAT 97
== END 2025-05-28 20:12 | disposition home or self-care (01) ==
PROVIDERS: Emergency Provider General Practice; PCP Family Medicine
DX: S22.41XA Multiple fractures of ribs, right side, initial encounter for closed fracture (principal); Z85.828 Personal history of other malignant neoplasm of skin; G47.30 Sleep apnea, unspecified; E78.5 Hyperlipidemia, unspecified; I10 Essential (primary) hypertension; Z79.82 Long term (current) use of aspirin; W11.XXXA Fall on and from ladder, initial encounter
CPT/HCPCS: 36415; 71046; 71260; 74177; 80053; 85025; 85610; 85730; 96374; 96375; 99284; J1171; J2405; Q9967